=== PATIENT | male | born 1965 | race Caucasian/White ===

== ENCOUNTER 2025-09-22 17:07 | Emergency (ER) | payer MEDICARE ==
[~2025-09-22] VITALS: Ht 170.2 cm; Wt 85.9 kg
--- NOTE | 2025-09-22 17:54 | RADIOLOGY REPORT ---
CHEST RADIOGRAPH Indication: cough x1 week Technique: Single frontal view of the chest was obtained. Comparison: None Findings: Left basilar atelectasis. No focal consolidation. No significant pleural effusion. No pneumothorax. Nonenlarged cardiomediastinal silhouette. IMPRESSION: No acute cardiopulmonary process.
[2025-09-22 18:33] VITALS: BP 106/78; PULSE 85; RESP 14; O2SAT 97
[2025-09-22] MEDS ORDERED: AZIT250T82 PO (18:56)
--- NOTE | 2025-09-22 18:56 | Physician Documentation ---
History of Present Illness ~ Chief Complaint: Cough Stated Complaint: PNEUMONIA Time Seen by MD: 18:37 HPI This is a 60-year-old male who presents with two weeks of progressively worsening nonproductive cough with subjective fever, patient reports that he was seen by primary care provider today and diagnosed with possible pneumonia, patient reports his primary care provider directed him to the emergency department due to this concern. Patient reports sore throat otherwise reports no other acute symptoms or concerns including difficulty breathing or chest pain. Medication Reconciliation Allergies: Coded Allergies: codeine (Unverified Allergy, Mild, rash, 09/22/25) Scheduled Azithromycin (Azithromycin), 1 TAB PO UD Past Medical History Past Medical History: No Pertinent History Review of Systems ROS As stated above in the HPI, otherwise all systems are reviewed and negative. Physical Exam Vital Signs: Temperature: 98.2, Source: Oral, Heart Rate: 85, Respiratory Rate: 14, BP: 106/78, Pulse Oximetry: 97, Weight: 85.900 Oxygen Flow Rate: 0 Physical Exam VITALS: Reviewed and as above. GENERAL: Alert, nontoxic appearing, no apparent distress. HEENT: Pharynx mildly erythematous, no patches or exudates, no tonsillar swelling, uvula midline RESPIRATORY: No increased work of breathing, no respiratory distress, speaking in full clear sentences clear lung sounds in all jasso CV: Regular rate and rhythm no murmur Progress Results/Orders Results/Orders Completed Orders - KAM FELDMAN Azithromycin Tablet (Zithromax Tablet) (09/22/25 19:00) Dexamethasone Inj (Decadron 10mg/Ml Inj) (09/22/25 18:56) Medications Received in ER Medications (Trade) Dose Ordered Sig/Rosalba Route PRN Reason Start Time Stop Time Status Last Admin Dose Admin (Zithromax tablet) 500 mg ONCE ONCE PO 09/22/25 19:00 09/22/25 19:01 DC 09/22/25 19:08 500 MG (Decadron 10mg/ ml inj) 10 mg ONCE STAT PO 09/22/25 18:56 09/22/25 18:57 DC 09/22/25 19:10 10 MG Vital Signs 09/22/25 09/22/25 09/22/25 17:08 18:33 19:13 Temp 98.2 98.2 98.2 Pulse 86 85 Resp 16 14 B/P (MAP) 121/84 106/78 (87) Pulse Ox 99 97 O2 Flow Rate 0 0 EKG/XRAY/CT/US/VASC/MRI CT : Impression Exam: CHEST,SINGLE VIEW CHEST RADIOGRAPH Indication: cough x1 week Technique: Single frontal view of the chest was obtained. Comparison: None Findings: Left basilar atelectasis. No focal consolidation. No significant pleural effusion. No pneumothorax. Nonenlarged cardiomediastinal silhouette. IMPRESSION: No acute cardiopulmonary process. Electronically Signed by:REMBERTO MATHEW MD Date & Time: 09/22/251750 Dictated by: REMBERTO MATHEW MD Dictation date and time: 09/22/251750 I have reviewed and agree with the radiology report. I have reviewed and interpreted the imaging as: No focal consolidation or pneumothorax Medical Decision Making Additional information obtaine: N/A Findings This 60-year-old male presented with two weeks of progressively worsening nonproductive cough with subjective fevers at home. Due to progressively worsening symptoms and subjective fever this will be treated as presumed pneumonia though chest x-ray did not demonstrate evidence of focal consolidation to suggest pneumonia. Remainder of patient's physical exam was benign and he is hemodynamically stable, as he is otherwise well-appearing he is appropriate for outpatient follow up and we will be discharged on course of oral antibiotics. Patient is to follow up promptly with primary care provider and has been provided careful follow up instructions, return to care precautions, and home care instructions which he verbalized understanding of Differential Dx:Considerations: Include: Allergic rhinitis, Influenza, Pneumonia, Pnuemonitis, Sinusitis, URI, Other (Bronchitis) Departure Time of Disposition: 18:52 Disposition: 01 HOME / SELF CARE / HOMELESS Impression: Primary Impression: Community acquired pneumonia Qualified Codes: J18.9 - Pneumonia, unspecified organism Condition: Improved Additional Instructions: Please take the antibiotics as prescribed. You may use ibuprofen and or Tylenol as needed for pain or fever as directed by [id number] packaging. Please follow up with your primary care provider in the next few days. Please return to the emergency department for any new or worsening concerning symptoms. Referrals: NO PRIMARY CARE PROVIDER (PCP) Prescriptions Azithromycin (Azithromycin) 250 Mg Tablet 1 TAB PO UD for 4 Days, #4 TAB Prov: KAM FELDMAN 09/22/25 Education Educated: Patient Educated regarding: diagnosis, treatment, prognosis, need for follow up Signature Scribe Signature: No scribe Attestation: The note accurately reflects work and decisions made by me.LIZZIE Huerta 09/23/25 01:11 KAM FELDMAN Sep 22, 2025 18:56
[2025-09-22] MEDS: dexamethasone sod phosphate 10mg/ml inj PO STA (19:10)
[2025-09-22 19:13] VITALS: TEMP 98.2
== END 2025-09-22 19:15 | disposition home or self-care (01) ==
LOC: ER 17:09
DX: J18.9 Pneumonia, unspecified organism (principal); Z88.5 Allergy status to narcotic agent
CPT/HCPCS: 71045; 99283; J1100